=== PATIENT | female | born 1980 ===

== ENCOUNTER → 2018-08-07 23:07 | Outpatient (REF) | payer OTHER, SELFPAY ==
[2018-08-08 00:33] LABS: Prolactin 52.2 ng/mL (3.0-18.6)
== END ==
LOC: LAB 23:07
PROVIDERS: Visit Provider Family Medicine
DX: D35.2 Benign neoplasm of pituitary gland (principal); E22.1 Hyperprolactinemia
CPT/HCPCS: 36415; 84146

== ENCOUNTER → 2018-09-16 21:36 | Outpatient (ROUT) | payer OTHER, SELFPAY ==
[2018-09-19 15:30] LABS: Parathyroid Hormone Int 13 pg/mL (14-64)
== END ==
PROVIDERS: Visit Provider Family Medicine
DX: D35.2 Benign neoplasm of pituitary gland (principal); E22.1 Hyperprolactinemia
CPT/HCPCS: 36415; 83970